=== PATIENT | male | born 1985 | race Caucasian/White ===

== ENCOUNTER 2018-06-29 06:23 | Day surgery (SDC) | payer SELFPAY ==
[2018-06-20 12:05] VITALS: BMI 28.2
[2018-06-29] MEDS ORDERED: SUCCINYLCHOLINE CHLORIDE 200 MG/10 ML VIAL ONE (07:34)
[2018-06-29] MEDS ORDERED: MIDAZOLAM HCL 2 MG/2 ML SINGLE DOSE VIAL ONE (07:34)
[2018-06-29] MEDS ORDERED: PROPOFOL 20 ML ONE ×2 (07:34)
[2018-06-29] MEDS ORDERED: fentaNYL CITRATE 250 MCG/5 ML VIAL ONE (07:34)
[2018-06-29] MEDS ORDERED: LIDOCAINE HCL 2% (20ML MULTI-DOSE VIAL) NR ONE (07:38)
[2018-06-29] MEDS ORDERED: EPINEPHrine/PF 1 MG/1 ML (1:1,000) AMPULE ONE (07:38)
[2018-06-29] MEDS ORDERED: BUPIVACAINE HCL/EPINEPHRINE/PF 30 ML VIAL IJ ONE (08:14)
[2018-06-29] MEDS ORDERED: LIDOCAINE HCL/PF 2% SDV 5ML VIAL ONE (08:17)
[2018-06-29] MEDS ORDERED: ceFAZolin SODIUM 1 GM VIAL ONE (08:17)
[2018-06-29] MEDS ORDERED: ONDANSETRON 4 MG/2 ML VIAL ONE (08:17)
[2018-06-29] MEDS ORDERED: LIDOCAINE HCL 2% JELLY (5 ML/TUBE) ONE (08:17)
[2018-06-29] MEDS ORDERED: KETOROLAC TROMETHAMINE 30 MG/1 ML VIAL ONE (08:17)
[2018-06-29] MEDS ORDERED: DEXAMETHASONE SOD PHOSPHATE 4 MG/1 ML VIAL ONE (08:17)
[2018-06-29] MEDS ORDERED: BUPIVACAINE 0.25% /EPI 1:200,000 10 ML VIAL INF ONE (09:00)
[2018-06-29] MEDS ORDERED: ONDANSETRON 4 MG/2 ML VIAL IVPUSH PRN ×2 (09:25→09:30)
[2018-06-29] MEDS ORDERED: ACETAMINOPHEN 325 MG TABLET (FP) PO PRN (09:25)
[2018-06-29] MEDS ORDERED: PROMETHAZINE HCL 25 MG/1 ML VIAL IVPUSH PRN (09:30)
[2018-06-29] MEDS ORDERED: LACTATED RINGERS SOLUTION 1,000 ML IV SCH (09:30)
[2018-06-29] MEDS ORDERED: oxyCODONE HCL 5 MG TABLET PO PRN ×2 (09:30)
[2018-06-29 09:41] VITALS: TEMP 97.6
[2018-06-29 11:33] VITALS: BP 122/68; PULSE 61
--- NOTE | 2018-07-01 10:08 | OP ---
DATE OF OPERATION: 06/29/2018 PREOPERATIVE DIAGNOSIS: Bilateral gynecomastia. POSTOPERATIVE DIAGNOSIS: Bilateral gynecomastia. PROCEDURE: Bilateral partial mastectomy for gynecomastia during direct excision as well as liposuction. ATTENDING SURGEON: Brendon Morse MD CO-SURGEON: Ron Myers MD ANESTHESIA: General with LMA. ESTIMATED BLOOD LOSS: Less than 10 mL. SPECIMEN: None. COMPLICATIONS: None. CONDITION: Stable to recovery room, extubated. INDICATION: The patient is a 33-year-old male who presents with bilateral gynecomastia with herniation of the breast tissue behind the bilateral nipple-areolar complexes. The patient is therefore indicated for bilateral partial mastectomies for correction of his gynecomastia and this will be performed through a direct excision as well as liposuction technique. The risks, benefits and alternatives of the procedure were discussed with the patient preoperatively in detail and all questions were answered. The risks include but are not limited to bleeding, infection, pain, need for revision or further surgery, partial or complete nipple loss, decreased or absent nipple sensation, residual breast asymmetry, residual gynecomastia, recurrence of gynecomastia, damage to neighboring structures including nerves, arteries, veins and tendons. The patient understands these risks and has elected to proceed with surgery. PROCEDURE: After proper identification and marking the patient in the preoperative holding area the patient was transported to the operating room, placed supine on the table and noninvasive anesthesia monitors were applied. Intravenous access was established. General anesthesia was administered and LMA was inserted without difficulty. SCD boots were applied to bilateral extremities. Intravenous antibiotics were then given. The patient's bilateral breasts were then prepped and draped in the usual sterile fashion. After a timeout was performed 0.25% Marcaine with 1:200,000 units of epinephrine was injected into bilateral axillary planned stab incisions as well as along the inferior portion of bilateral nipple-areolar complexes from the 3 to 9 o'clock position. A total of 10 mL were used. Attention was first turned towards the left breast where the stab incision was made in the left axilla. Standard tumescent solution was then infiltrated into the subcutaneous tissue of the left breast. Once this was given adequate time to take effect the micro air system was loaded with a 4-mm cannula and power-assisted liposuction was performed in the subcutaneous plane of the left breast pocket. Once an adequate amount of liposuction had been performed the access incision was closed with a 4-0 nylon in a simple interrupted fashion. Next a No. 15 blade was used to make the periareolar incision on the left side from the 3 to 9 o'clock position at the junction of the areola with the surrounding breast skin. The dissection was carried down through the dermis and a superiorly based nipple-areolar flap with approximately 1 cm of retroareolar tissue was raised. At this point electrocautery was used to resect the breast tissue once the nipple-areolar complex flap had been adequately elevated out of the way. The resected breast tissue was passed off the field to be discarded. At this point the left breast pocket was irrigated and hemostasis was ensured. The nipple-areolar complex flap was then placed back into position. A crescent of infraareolar skin was then excised with a curved iris scissor. The periareolar incision was then closed in layers with a 3-0 Monocryl in a buried deep dermal fashion followed by a 4-0 nylon in a simple running fashion. Once the left side was completed attention was turned towards the right side where the exact same procedure was performed and therefore only 1 side will be dictated. Mastisol and Steri-Strips were then applied to bilateral periareolar closure lines and the patient was then placed into a compressive garment with care taken to ensure adequate padding with fluffs and ABD pads. The patient at this point was slowly awakened and extubated without incident and was transported to the recovery room in stable condition. Cuca [id number]
== END 2018-06-29 10:45 | disposition home or self-care (01) ==
LOC: FASU 06:23
PROVIDERS: ATTEND Plastic Surgery
CPT/HCPCS: 94760